=== PATIENT | female | born 1930 | race Two or more races ===

== ENCOUNTER 2018-04-20 11:29 | Outpatient (CLI) | payer MEDICARE, OTHER | END 2018-04-20 23:59 | disposition home health service (06) | LOC: WOU 11:29 | PROVIDERS: ATTEND Podiatrist Foot & Ankle Surgery | DX: I83.028 Varicose veins of left lower extremity with ulcer other part of lower leg (principal); L97.822 Non-pressure chronic ulcer of other part of left lower leg with fat layer exposed; I83.813 Varicose veins of bilateral lower extremities with pain | CPT/HCPCS: 11042; A6209; A6402; Z7610 ==

== ENCOUNTER 2018-05-08 08:37 | Outpatient (CLI) | payer MEDICARE, OTHER | END 2018-05-08 23:59 | disposition home health service (06) | LOC: WOU 08:37 | PROVIDERS: ATTEND Podiatrist Foot & Ankle Surgery | DX: I87.2 Venous insufficiency (chronic) (peripheral) (principal); I83.813 Varicose veins of bilateral lower extremities with pain; Z87.2 Personal history of diseases of the skin and subcutaneous tissue | CPT/HCPCS: A6402; G0463 ==

== ENCOUNTER 2018-06-20 13:50 | Outpatient (CLI) | payer MEDICARE, OTHER, MEDICAID | END 2018-06-20 23:59 | disposition home or self-care (01) | LOC: VASLAB 13:50 | PROVIDERS: ATTEND Surgery Vascular Surgery | DX: I87.2 Venous insufficiency (chronic) (peripheral) (principal); L97.329 Non-pressure chronic ulcer of left ankle with unspecified severity | CPT/HCPCS: G0463 ==